=== PATIENT | male | born 1985 | race Caucasian/White ===

== ENCOUNTER 2020-04-15 16:01 | Emergency (ER) | payer MEDICAID ==
[~2020-04-15] VITALS: Ht 167.6 cm; Wt 85.0 kg
[~2020-04-15 16:01] MED LIST: ACET-2119 PO; BISA5TAB10 PO; CETI-90 PO; DIVA-76 PO; HYDR-4383 PO; LEVE750T6 PO; LEVO25TA2 PO; LORA0.5T PO; MAGN400O6 PO; MELA5TAB12 PO; QUET-1 PO; QUET25TA PO; SENN-263 PO; SODI1TAB PO
--- NOTE | 2020-04-15 18:00 | NUR ---
SAMUEL GAN AT BEDSIDE TO ASSESS PATIENT AT THIS TIME, CAREGIVER AT BEDSIDE REQUESTED MINIMAL ASSESSMENTS/INTERVENTIONS POSSIBLE R/T PATIENT RESTLESS/ANXIOUS. PA AGREED, AWARE PATIENT UNABLE TO OBTAIN BP R/T RESTLESSNESS.
[2020-04-15] MEDS ORDERED: LORazepam 2 mg/ml vial IM ONE (18:15)
[2020-04-15 19:27] LABS: BASOPHILS % (AUTO) 0.3 % (0-1); EOSINOPHILS % (AUTO) 0 % (0-6); HEMATOCRIT 42.5 % (42.0-52.0); HEMOGLOBIN 14.8 g/dl (14.0-17.9); LYMPHOCYTES % (AUTO) 6.3 % (21-51); MEAN CORPUSCULAR HEMOGLOBIN 34.3 PG (27.0-31.0); MEAN CORPUSCULAR HGB CONC 34.8 g/dL (33.0-36.5); MEAN CORPUSCULAR VOLUME 98.7 FL (78-98); MEAN PLATELET VOLUME 7.3 FL (7.4-10.4); MONOCYTES # (AUTO) 1.6 X10'3 (0-0.9); MONOCYTES % (AUTO) 10.2 % (2-12); NEUTROPHILS % (AUTO) 83.2 % (42-75); PLATELET COUNT 261 X10'3 (140-440); RED BLOOD COUNT 4.31 X10'6 (4.70-6.10); RED CELL DISTRIBUTION WIDTH 12.5 % (11.5-14.5); WHITE BLOOD COUNT 15.6 X10'3 (4.5-11.0)
[2020-04-15 19:48] LABS: ALANINE AMINOTRANSFERASE 24 U/L (12-78); ALBUMIN 3.8 G/DL (3.4-5.0); ALBUMIN/GLOBULIN RATIO 0.8 (1.1-1.5); ALKALINE PHOSPHATASE 56 IU/L (46-116); ANION GAP 15 (8-16); ASPARTATE AMINO TRANSFERASE 16 U/L (10-37); BILIRUBIN,TOTAL 0.3 MG/DL (0.1-1.0); BLOOD UREA NITROGEN 15 MG/DL (7-18); BUN/CREATININE RATIO 14.4 (5.4-32.0); CALCIUM 9.2 MG/DL (8.5-10.1); CHLORIDE 102 MMOL/L (99-107); CREATININE 1.04 MG/DL (0.60-1.10); GLUCOSE 95 MG/DL (70-104); POTASSIUM 4.2 MMOL/L (3.5-5.1); SODIUM 137 MMOL/L (135-145); TOTAL CARBON DIOXIDE 20.5 MMOL/L (24-32); TOTAL PROTEIN 8.3 G/DL (6.4-8.2); eGFR 81 ML/MIN
[2020-04-15] MEDS ORDERED: CefTRIAXone 2gm/D5W 50ml BAG 50 ML IV ONE (19:50)
[2020-04-15] MEDS ORDERED: normal saline 1000ML IV soln IV ONE (19:50)
[2020-04-15 19:53] LABS: VALPROATE 110 UG/ML (50-100)
[2020-04-15 22:33] LABS: CLARITY,URINE CLEAR (Clear); COLOR,URINE YELLOW (Yellow); GLUCOSE, URINE NEGATIVE (Neg); KETONES,URINE NEGATIVE (Neg); LEUKOCYTE ESTERASE ,URINE SMALL (Neg); NITRITES, URINE NEGATIVE (Neg); OCCULT BLOOD,URINE MODERATE (Neg); PROTEIN,URINE NEGATIVE (Neg); UA COLLECTION TYPE CLN CATCH MIDSTREAM; UROBILINOGEN,URINE 0.2 E.U/dL (0.2-1.0)
[2020-04-15 22:38] LABS: BACTERIA,URINE 1+ /HPF (Neg); SQUAMOUS EPITHELIAL CELL,UR FEW /LPF (FEW); WBC,URINE 20-30 /HPF (0-4)
[2020-04-16] MEDS ORDERED: CEFD300C3 PO (00:06)
[2020-04-16 00:28] VITALS: BP 126/95
== END 2020-04-16 00:30 | disposition home or self-care (01) ==
LOC: ER 16:02
DX: R56.9 Unspecified convulsions (principal); N39.0 Urinary tract infection, site not specified; R00.0 Tachycardia, unspecified; Z86.69 Personal history of other diseases of the nervous system and sense organs; Z88.2 Allergy status to sulfonamides; Z79.2 Long term (current) use of antibiotics; Z79.899 Other long term (current) drug therapy
CPT/HCPCS: 36415; 70450; 71045; 80053; 80164; 81001; 83605; 84145; 85025; 87040; 87088; 93005; 96365; 96372; 99285; J0696; J2060; J7030